=== PATIENT | male | born 1960 | race Hispanic/Latino ===

== ENCOUNTER 2024-01-21 13:02 | Emergency (ER) | payer MEDICARE, OTHER ==
[~2024-01-21] VITALS: Ht 162.6 cm; Wt 111.1 kg
[2024-01-21 16:00] VITALS: BP 150/83; PULSE 72; RESP 18; O2SAT 98
[2024-01-21] MEDS ORDERED: TOBRDOS OS (18:05)
== END 2024-01-21 18:24 | disposition home or self-care (01) ==
LOC: EDH 13:07
DX: H11.002 Unspecified pterygium of left eye (principal); H57.89 Other specified disorders of eye and adnexa; E03.9 Hypothyroidism, unspecified